=== PATIENT | male | born 2000 | race Hispanic/Latino ===

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

== ENCOUNTER → 2022-02-06 | Outpatient (CLI) | payer MEDICAID ==
[~2022-02-06] MED LIST changes: -ESCI20TA PO; +ESCI20TA16 PO; -FLUO10CA15 PO; +FLUO10CA18 PO; +METH-1103 PO; -METH1CHW3 PO; -OLAN15TA PO; +OLAN15TA13 PO; +OLAN1TAB16 PO; -OLAN5TAB PO; +VITA30004 PO; +WELL100T2 PO
[2022-02-06 11:36] LABS: BASO # 0.1 10^3/uL (0.0-0.2); BASO % 0.5 % (0.0-1.0); EOS # 0.3 10^3/uL (0.0-0.5); EOS % 2.8 % (0.0-3.0); HEMATOCRIT 47.4 % (42.0-52.0); HEMOGLOBIN 15.5 g/dl (13.5-17.5); LYMPH # 3.5 10^3/uL (1.5-5.0); LYMPH % 38.3 % (24.0-44.0); MEAN CORPUSCULAR HEMOGLOBIN 30.7 pg (27.0-33.0); MEAN CORPUSCULAR HGB CONC 32.7 g/dl (32.0-36.5); MEAN CORPUSCULAR VOLUME 93.9 fl (80.0-96.0); MONO # 0.6 10^3/uL (0.0-0.8); MONO % 6.7 % (2.0-8.0); NEUTROPHILS # 4.7 10^3/uL (1.5-8.5); NEUTROPHILS % 51.4 % (36.0-66.0); PLATELET COUNT, AUTOMATED 251 10^3/uL (150-450); RED BLOOD COUNT 5.05 10^6/uL (4.30-6.10); WHITE BLOOD COUNT 9.1 10^3/uL (4.0-10.0)
[2022-02-06 11:54] LABS: HEMOGLOBIN A1c 5.3 %
[2022-02-06 12:19] LABS: ALBUMIN 3.9 GM/DL (3.2-5.2); ALT/SGPT 57 U/L (12-78); BILIRUBIN,TOTAL 0.4 MG/DL (0.2-1.0); BLOOD UREA NITROGEN 8 MG/DL (7-18); CALCIUM LEVEL 8.9 MG/DL (8.5-10.1); CARBON DIOXIDE LEVEL 28 MEQ/L (21-32); CHLORIDE LEVEL 107 MEQ/L (98-107); CREATININE FOR GFR 0.98 MG/DL (0.70-1.30); GLUCOSE, FASTING 93 MG/DL (70-100); POTASSIUM SERUM 3.9 MEQ/L (3.5-5.1); SODIUM LEVEL 141 MEQ/L (136-145); TOTAL 25(OH) VITAMIN D 14.5 NG/ML (30.0-100.0); TOTAL PROTEIN 7.8 GM/DL (6.4-8.2)
== END ==
LOC: M LAB 10:43
DX: F31.9 Bipolar disorder, unspecified (principal)

== ENCOUNTER 2022-03-30 20:58 | Emergency (ER) | payer MEDICAID | END 2022-03-30 23:32 | disposition left against medical advice (07) | LOC: EDBD 20:58 → M ED 20:58 | DX: Z53.21 Procedure and treatment not carried out due to patient leaving prior to being seen by health care provider (principal) ==

== ENCOUNTER 2022-05-08 14:24 | Emergency (ER) | payer MEDICAID, OTHER ==
[~2022-05-08] VITALS: Ht 180.3 cm; Wt 147.1 kg
[2022-05-08 14:25] VITALS: BP 145/81
== END 2022-05-08 16:49 | disposition home or self-care (01) ==
LOC: M ED 14:24
DX: J04.0 Acute laryngitis (principal); K21.9 Gastro-esophageal reflux disease without esophagitis; F17.200 Nicotine dependence, unspecified, uncomplicated; J30.2 Other seasonal allergic rhinitis; R51.9 Headache, unspecified; R19.7 Diarrhea, unspecified; R11.0 Nausea; Z79.899 Other long term (current) drug therapy

== ENCOUNTER → 2022-12-10 | Outpatient (REF) | payer OTHER ==
[2022-12-10 17:32] LABS: ALKALINE PHOSPHATASE 68 U/L (46-116); ALT/SGPT 71 U/L (7.0-40); AST/SGOT 32 U/L (<34); BILIRUBIN,TOTAL 0.7 MG/DL (0.3-1.2); BLOOD UREA NITROGEN 13 MG/DL (9-23); CALCIUM LEVEL 8.6 MG/DL (8.5-10.1); CARBON DIOXIDE LEVEL 27 MMOL/L (20-31); CHLORIDE LEVEL 103 MMOL/L (98-107); CHOLESTEROL LEVEL 172 MG/DL (<200); CHOLESTEROL RISK RATIO 3.23 (<5); CREATININE FOR GFR 0.81 MG/DL (0.70-1.30); GLUCOSE, FASTING 81 MG/DL (60-100); HDL CHOLESTEROL 53.1 MG/DL (>40); LDL CHOLESTEROL 83.1 MG/DL (<100); NON-HDL-C 118.9 MG/DL; SODIUM LEVEL 137 MMOL/L (136-145); THYROID STIMULATING HORMONE 1.052 uIU/ML (0.48-4.17); TOTAL PROTEIN 7.6 G/DL (5.7-8.2); TRIGLYCERIDES LEVEL 179 MG/DL (<150)
[2022-12-10 18:02] LABS: HIV 1&2 SCREEN CENTAUR NEGATIVE (NEGATIVE)
[2022-12-10 18:06] LABS: HEMOGLOBIN A1c 4.9 % (4.0-6.0)
[2022-12-10 18:09] LABS: HEPATITIS C VIRUS ABY INDEX 0.1 INDEX (<0.8)
== END ==
LOC: M LAB REF 16:55
PROVIDERS: ATTEND Nurse Practitioner Family
DX: Z11.9 Encounter for screening for infectious and parasitic diseases, unspecified (principal); Z13.228 Encounter for screening for other metabolic disorders

== ENCOUNTER → 2022-12-13 | Outpatient (REF) | payer OTHER ==
[2022-12-13 17:19] LABS: BASO # 0.1 10^3/uL (0.0-0.2); BASO % 0.6 % (0.0-1.0); EOS # 0.2 10^3/uL (0.0-0.5); EOS % 1.9 % (0.0-3.0); HEMATOCRIT 46.1 % (42.0-52.0); HEMOGLOBIN 15.1 g/dl (13.5-17.5); LYMPH # 3.3 10^3/uL (1.5-5.0); LYMPH % 34.3 % (24.0-44.0); MEAN CORPUSCULAR HEMOGLOBIN 30.5 pg (27.0-33.0); MEAN CORPUSCULAR HGB CONC 32.8 g/dl (32.0-36.5); MEAN CORPUSCULAR VOLUME 93.1 fl (80.0-96.0); MONO # 0.6 10^3/uL (0.0-0.8); NEUTROPHILS # 5.5 10^3/uL (1.5-8.5); PLATELET COUNT, AUTOMATED 256 10^3/uL (150-450); RED BLOOD COUNT 4.95 10^6/uL (4.30-6.10); WHITE BLOOD COUNT 9.7 10^3/uL (4.0-10.0)
[2022-12-13 17:45] LABS: PERCENT SATURATION 31.8 % (19.7-50.0)
[2022-12-13 17:47] LABS: FERRITIN 104.6 NG/ML (10.5-307.3)
== END ==
LOC: M LAB REF 16:19
PROVIDERS: ATTEND Nurse Practitioner Family
DX: E61.1 Iron deficiency (principal)

== ENCOUNTER 2023-03-13 22:46 | Emergency (ER) | payer OTHER ==
[~2023-03-13] VITALS: Ht 182.9 cm; Wt 147.2 kg
[2023-03-14] MEDS ORDERED: MORPHINE 4 MG/ML 1ML VIAL IV ONE (00:35)
[2023-03-14] MEDS ORDERED: ONDANSETRON 4MG 2ML VIAL IV ONE (00:35)
[2023-03-14 01:33] VITALS: TEMP 97.9
[2023-03-14 01:57] VITALS: BP 140/67; O2SAT 97
[2023-03-14] MEDS ORDERED: LIDOCAINE 1% MDV 20ML VIAL SC ONE (02:10)
[2023-03-14] MEDS ORDERED: CEPHALEXIN 500 MG CAP PO ONE (02:50)
[2023-03-14] MEDS ORDERED: CEPH500C PO (02:53)
[2023-03-14] MEDS ORDERED: BACI500O8 TOP (02:53)
== END 2023-03-14 03:10 | disposition home or self-care (01) ==
LOC: M ED 22:46
DX: S01.81XA Laceration without foreign body of other part of head, initial encounter (principal); S01.01XA Laceration without foreign body of scalp, initial encounter; S40.812A Abrasion of left upper arm, initial encounter; X99.1XXA Assault by knife, initial encounter; Y92.410 Unspecified street and highway as the place of occurrence of the external cause; Y93.89 Activity, other specified; Y99.8 Other external cause status; F17.200 Nicotine dependence, unspecified, uncomplicated
CPT/HCPCS: 12002; 12011; 70450; 70486; 99284; J2405

== ENCOUNTER 2023-03-25 11:05 | Emergency (ER) | payer OTHER ==
[~2023-03-25] VITALS: Ht 182.9 cm; Wt 144.4 kg
[~2023-03-25 11:05] MED LIST changes: +BACI500O8 TOP; +CEPH500C PO
[2023-03-25 13:24] VITALS: BP 137/85; TEMP 98.4; O2SAT 100
== END 2023-03-25 13:32 | disposition home or self-care (01) ==
LOC: M ED 11:05
DX: Z48.02 Encounter for removal of sutures (principal); F90.9 Attention-deficit hyperactivity disorder, unspecified type; F91.3 Oppositional defiant disorder; F17.210 Nicotine dependence, cigarettes, uncomplicated; Z79.899 Other long term (current) drug therapy

== ENCOUNTER 2023-11-07 01:39 | Day surgery (SDC) | payer OTHER, MEDICAID ==
[~2023-11-07] VITALS: Ht 185.4 cm; Wt 143.6 kg
[2023-11-07] VITALS (7 sets, daily range): BP systolic 101–128; BP diastolic 49–86; TEMP 97.4–98.1; O2SAT 94–97
[~2023-11-07 01:39] MED LIST changes: +ACET-683 PO; +HYDR-3363
[2023-11-07 02:26] LABS: BASO # 0.1 10^3/uL (0.0-0.2); BASO % 0.5 % (0.0-1.0); EOS # 0.1 10^3/uL (0.0-0.5); EOS % 1.2 % (0.0-3.0); HEMOGLOBIN 14.9 g/dl (13.5-17.5); LYMPH # 3.3 10^3/uL (1.5-5.0); MEAN CORPUSCULAR HEMOGLOBIN 30.7 pg (27.0-33.0); MEAN CORPUSCULAR HGB CONC 33.1 g/dl (32.0-36.5); MEAN CORPUSCULAR VOLUME 92.6 fl (80.0-96.0); MONO # 0.6 10^3/uL (0.0-0.8); MONO % 6.2 % (2.0-8.0); NEUTROPHILS # 5.6 10^3/uL (1.5-8.5); NEUTROPHILS % 57.8 % (36.0-66.0); PLATELET COUNT, AUTOMATED 244 10^3/uL (150-450); RED BLOOD COUNT 4.86 10^6/uL (4.30-6.10); WHITE BLOOD COUNT 9.7 10^3/uL (4.0-10.0)
[2023-11-07 02:47] LABS: LIPASE 35 U/L (12-53)
[2023-11-07 02:49] LABS: ALBUMIN 4.1 G/DL (3.2-5.2); ALKALINE PHOSPHATASE 62 U/L (46-116); ALT/SGPT 57 U/L (7.0-40); AST/SGOT 30 U/L (<34); BILIRUBIN,DIRECT < 0.1 MG/DL (<0.4); BILIRUBIN,TOTAL 0.2 MG/DL (0.3-1.2); BLOOD UREA NITROGEN 17 MG/DL (9-23); CALCIUM LEVEL 9.2 MG/DL (8.5-10.1); CARBON DIOXIDE LEVEL 28 MMOL/L (20-31); CHLORIDE LEVEL 104 MMOL/L (98-107); CREATININE FOR GFR 0.91 MG/DL (0.70-1.30); GLOMERULAR FILTRATION RATE > 60.0 (>60); GLUCOSE, FASTING 97 MG/DL (60-100); POTASSIUM SERUM 4.4 MMOL/L (3.5-5.1); SODIUM LEVEL 139 MMOL/L (136-145); TOTAL PROTEIN 7.2 G/DL (5.7-8.2)
[2023-11-07] MEDS ORDERED: ISOVUE-370 76% 100ML VIAL As Ordered ONE (04:49)
[2023-11-07] MEDS: KETOROLAC 30 MG/ML 1ML VIAL IV ONE (05:12)
[2023-11-07] MEDS: NS 1,000 ML IV ONE (05:13)
[2023-11-07] MEDS: SUCRALFATE SUSP 1GM/10ML UD PO ONE (05:19)
[2023-11-07] MEDS: NS 1,000 ML IV SCH (08:29)
[2023-11-07] MEDS: PIPERACILLIN/TAZOBACTAM SOD 4.5 GM in D5W MINI-BAG PLUS 50 ML IV ONE (08:29)
[2023-11-07] MEDS ORDERED: HOME MED LIST COMPLETE! XX SCH (08:35)
[2023-11-07 08:58] LABS: RSV AMPLIFICATION NEGATIVE (NEGATIVE)
[2023-11-07] MEDS ORDERED: ONDANSETRON 4MG 2ML VIAL IV PRN ×2 (09:55→19:10)
[2023-11-07] MEDS: KETOROLAC 30 MG/ML 1ML VIAL IV SCH ×2 (10:47→21:26)
[2023-11-07] MEDS: LR 1,000 ML IV SCH (10:48)
[2023-11-07] MEDS: PIPERACILLIN/TAZOBACTAM SOD 3.375 GM in D5W MINI-BAG PLUS 50 ML IV SCH (14:22)
[2023-11-07] MEDS: INDOCYANINE GREEN 25MG VIAL (IC-GREEN) As Ordered ONE (17:00)
[2023-11-07] MEDS: ceFAZolin 2 GM/D5W 50 ML IV BAG As Ordered ONE (17:31)
[2023-11-07] MEDS: ceFAZolin 1GM VIAL As Ordered ONE (17:31)
[2023-11-07] MEDS ORDERED: propofoL 200 MG/20 ML VIAL As Ordered ONE (17:38)
[2023-11-07] MEDS ORDERED: ONDANSETRON 4MG 2ML VIAL As Ordered ONE (17:38)
[2023-11-07] MEDS ORDERED: fentaNYL 250 MCG/5 ML INJECTION As Ordered ONE (17:38)
[2023-11-07] MEDS ORDERED: KETOROLAC 60MG 2ML VIAL As Ordered ONE (17:38)
[2023-11-07] MEDS ORDERED: MIDAZOLAM INJ 2MG/2ML VIAL As Ordered ONE (17:38)
[2023-11-07] MEDS ORDERED: ROCURONIUM BROMIDE 50MG/5ML VIAL As Ordered ONE (17:38)
[2023-11-07] MEDS ORDERED: ACETAMINOPHEN 1000MG 100ML IV BAG As Ordered ONE (17:38)
[2023-11-07] MEDS ORDERED: LIDOCAINE 2% 100MG/5ML SDV (FOR ANES.) As Ordered ONE (17:38)
[2023-11-07] MEDS ORDERED: SUGAMMADEX SODIUM 500 MG/5 ML VIAL (BRIDION) As Ordered ONE (17:50)
[2023-11-07] MEDS: LIDOCAINE 1% SDV 30ML VIAL As Ordered ONE (19:00)
[2023-11-07] MEDS ORDERED: fentaNYL 100 MCG/2 ML INJECTION IV PRN (19:10)
[2023-11-07] MEDS ORDERED: PERCOCET 5MG/325MG TAB PO PRN (19:15)
[2023-11-07] MEDS: oxyCODONE 5MG TAB PO PRN (19:28)
[2023-11-07] MEDS: MORPHINE 2 MG/ML 1ML VIAL IV PRN (19:28)
[2023-11-08] MEDS: PERCOCET 5MG/325MG TAB PO PRN (00:07)
[2023-11-08 00:15] VITALS: BP 117/71; TEMP 97.6; O2SAT 94
[2023-11-08 01:15] VITALS: BP 123/84; TEMP 97.9; O2SAT 94
[2023-11-08 05:15] VITALS: BP 115/68; TEMP 97.4; O2SAT 95
[2023-11-08 09:15] VITALS: BP 123/77; TEMP 98.1; O2SAT 97
[2023-11-08] MEDS ORDERED: IBUP-1022 PO (10:45)
[2023-11-08] MEDS ORDERED: PERCOCET PO (10:47)
== END 2023-11-08 11:30 | disposition home or self-care (01) ==
LOC: M ED 01:39 → EDBD 01:39 → M SDC 01:40 → M MSPAV 01:41 → UNDOADMIN 09:52 → M MSPAV 09:52 → M SDC 11-08 11:30 → UNDODISIN 11-08 11:30
PROVIDERS: ATTEND Surgery
DX: K80.10 Calculus of gallbladder with chronic cholecystitis without obstruction (principal); E66.9 Obesity, unspecified; Z68.41 Body mass index [BMI] 40.0-44.9, adult; F90.9 Attention-deficit hyperactivity disorder, unspecified type; F91.3 Oppositional defiant disorder; F32.89 Other specified depressive episodes; R91.1 Solitary pulmonary nodule; Z59.00 Homelessness unspecified; F17.210 Nicotine dependence, cigarettes, uncomplicated; F17.290 Nicotine dependence, other tobacco product, uncomplicated
CPT/HCPCS: 47563; 64488; 80048; 80076; 81001; 83690; 85025; 87631; 88304; 96361; 96365; 96366; 96375; 96376; 99285; J0131; J0665; J0690; J1100; J1885; J2250; J2405; J2543; J3010; Q9967; Q9968; S2900

== ENCOUNTER 2023-11-20 14:09 | Emergency (ER) | payer MEDICAID, OTHER ==
[~2023-11-20] VITALS: Ht 185.4 cm; Wt 142.2 kg
[~2023-11-20 14:09] MED LIST changes: +IBUP-1022 PO; +PERCOCET PO
[2023-11-20 15:12] LABS: BASO # 0.1 10^3/uL (0.0-0.2); EOS # 0.2 10^3/uL (0.0-0.5); EOS % 2.6 % (0.0-3.0); HEMATOCRIT 42.8 % (42.0-52.0); HEMOGLOBIN 14.3 g/dl (13.5-17.5); MEAN CORPUSCULAR HEMOGLOBIN 30.7 pg (27.0-33.0); MEAN CORPUSCULAR HGB CONC 33.4 g/dl (32.0-36.5); MEAN CORPUSCULAR VOLUME 91.8 fl (80.0-96.0); MONO # 0.7 10^3/uL (0.0-0.8); MONO % 7.7 % (2.0-8.0); NEUTROPHILS # 5.4 10^3/uL (1.5-8.5); NEUTROPHILS % 64.5 % (36.0-66.0); PLATELET COUNT, AUTOMATED 265 10^3/uL (150-450); RED BLOOD COUNT 4.66 10^6/uL (4.30-6.10); WHITE BLOOD COUNT 8.4 10^3/uL (4.0-10.0)
[2023-11-20 15:34] LABS: BLOOD UREA NITROGEN 10 MG/DL (9-23); CALCIUM LEVEL 9.1 MG/DL (8.5-10.1); CARBON DIOXIDE LEVEL 28 MMOL/L (20-31); CHLORIDE LEVEL 105 MMOL/L (98-107); CREATININE FOR GFR 0.68 MG/DL (0.70-1.30); GLOMERULAR FILTRATION RATE > 60.0 (>60); GLUCOSE, FASTING 79 MG/DL (60-100); POTASSIUM SERUM 4.1 MMOL/L (3.5-5.1); SODIUM LEVEL 141 MMOL/L (136-145)
[2023-11-20 15:47] LABS: RSV AMPLIFICATION NEGATIVE (NEGATIVE)
[2023-11-20] MEDS: KETOROLAC 30 MG/ML 1ML VIAL IV ONE (16:58)
[2023-11-20 17:09] LABS: ALBUMIN 3.7 G/DL (3.2-5.2); ALKALINE PHOSPHATASE 69 U/L (46-116); ALT/SGPT 44 U/L (7.0-40); AST/SGOT 23 U/L (<34); BILIRUBIN,DIRECT < 0.1 MG/DL (<0.4); BILIRUBIN,TOTAL 0.2 MG/DL (0.3-1.2); TOTAL PROTEIN 7.3 G/DL (5.7-8.2)
[2023-11-20 17:33] VITALS: BP 132/58; TEMP 97.4; O2SAT 98
== END 2023-11-20 17:50 | disposition home or self-care (01) ==
LOC: M ED 14:09 → EDBD 14:09 → M ED 17:50
DX: R10.11 Right upper quadrant pain (principal); R10.31 Right lower quadrant pain; F32.A Depression, unspecified; K80.20 Calculus of gallbladder without cholecystitis without obstruction; F43.10 Post-traumatic stress disorder, unspecified; F90.0 Attention-deficit hyperactivity disorder, predominantly inattentive type; F91.3 Oppositional defiant disorder; R91.1 Solitary pulmonary nodule; F15.10 Other stimulant abuse, uncomplicated; F17.290 Nicotine dependence, other tobacco product, uncomplicated; F10.10 Alcohol abuse, uncomplicated; Z91.09 Other allergy status, other than to drugs and biological substances; Z79.899 Other long term (current) drug therapy; Z79.1 Long term (current) use of non-steroidal anti-inflammatories (NSAID)
CPT/HCPCS: 76705; 80048; 80076; 85025; 87631; 96374; 99284; J1885